=== PATIENT | female | born 1960 | race Caucasian/White ===

== ENCOUNTER 2021-01-30 16:13 | Emergency (ER) | payer BC ==
--- OUTSIDE RECORDS SUMMARY | 2021-01-30 16:17 | XMS REPORT | Continuity of Care Document ---
:1960 Author Organization [facility] t Address [address] [place] [address] Dr. Smyth [address] [place] [address] Care Team Providers Name Role Phone Marleen MCDONALD, Juhi Primary Care Physician Vick German MD Attending Clinician Adams Mansfield MD Attending Clinician Denadebra LOBO Attending Clinician MD VICK GERMAN Attending Clinician Unavailable Renetta BUITRAGO Attending Clinician Unavailable Provider Attending Clinician FARA Admitting Clinician Unavailable MD VICK GERMAN Admitting Clinician Unavailable Payers Payer Name Policy Type Policy Number Effective Date Expiration Date S ource Problems Condition Condition Condition Status Onset Resolution Last Treating Co mments Source Name Details Category Date Date Treatment Clinician Date Atypical Atypical Disease Active [facility] di ductal ductal 3-11 st hyperplasi hyperplasi 00:00: Ho spita a of right a of right 00 l breast breast Family Family Disease Active [facility] history of history of 2-11 st breast breast 00:00: Hospita cancer cancer 00 l Cellulitis Cellulitis Disease Active M ethodi of right of right 2-04 st breast breast 00:00: Hospita 00 l 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 uncertain 00:00: Hosp darlin behavior behavior 00 l of right of right breast breast Abnormal Abnormal Disease Active 2019-05 Metho di findings findings 2- st on on 00:00: Hospita diagnostic diagnostic 00 l imaging of imaging of breast breast Breast Breast Disease Active 2019-05 [facility] calcificat calcificat 2-01 st ions on ions on 00:00: Hospita mammogram mammogram 00 l Sciatica Sciatica Disease Active Metho di 12-22 st 00:00: Hospita 00 l Osteopenia Osteopenia Disease Active 2017-05 M ethodi 05-24 st 00:00: Hospita 00 l Allergies, Adverse Reactions, Alerts Allergy Allergy Status Severity Reaction(s) Onset Inactive Treating Comm ents Source Name Type Date Date Clinician Latex Propensi Active Itching 2019-05 Swelling, Meth shamika ty to 06-[address] adverse 00:00: blisters Hospita reaction 00 l s to drug Family History Family Member Diagnosis Comments Start Date Stop Date Source Cousin Breast cancer [facility] Paternal aunt [facility] Social History Social Habit Start Date Stop Date Quantity Comments Source Tobacco use and 2020-07-27 2020-07-27 Never used [facility] 00:00:00 00:00:00 Hospital Alcohol intake 2020-07-27 2020-07-27 Lifetime [facility] 00:00:00 00:00:00 non-drinker Hospital (finding) History SDOH 2020-06-29 2020-06-29 1 [facility] Alcohol Frequency 00:00:00 00:00:00 Hospita l History SDOH 2020-06-29 2020-06-29 99 [facility] Alcohol Std Drinks 00:00:00 00:00:00 Hospit al History SDOH 2020-06-29 2020-06-29 1 [facility] Alcohol Binge 00:00:00 00:00:00 Hospital Sex Assigned At [birth year] [facility] 00[facility] 00[facility]:00 [facility] Smoking Status Start Date Stop Date Source Never smoker [facility] Medications Ordered Filled Start Stop Current Ordering Indication Dosage Frequency Signature Comments Components Source Medication Medication Date Date Medication? Clinician (SIG) Name Name multivitami Yes 1{capsu QD Take 1 M ethodi n capsule 3-11 le} capsule by st 16:08: mouth Hospita 47 daily. l cyanocobala Yes QD Take by Met hodi min, 3-[address] vitamin 16:08: daily. Hospita B-12, 47 l (VITAMIN B-12 ORAL) cholecalcif Yes QD Take by Met dale daljit, 3-[address] vitamin D3, 16:08: daily. Hosp darlin (VITAMIN D3 47 l ORAL) ascorbic Yes QD Take by Method i acid 3-[address] (VITAMIN C 16:08: daily. Hospi ta ORAL) 47 l cephalexin 2020- No 500mg Q.[id number] Take 1 Methodi (Keflex) 2-04 02-15 [id number] capsule s t 500 MG 00:00: 05:59 3D (500 mg Hospita capsule 00 :00 total) by l mouth 3 (three) times a day for 10 days. traMADoL 2020- No 10746 50mg Q6H Take 1 Metho di (Ultram) 50 06-1407 tablet (50 s t mg tablet 00:00: 05:59 mg total) Ho spita 00 :00 by mouth l every 6 (six) hours as needed for severe pain for up to 10 days .acute pain. methocarbam 2019-05 Yes 750mg Q.[id number] Take 750 Methodi oL -[id number] (ROBAXIN) 00:00: 3D mouth 3 Hospi ta 750 MG 00 (three) l tablet times a day as needed. pantoprazol 2019-05 Yes 40mg QD Take 40 mg Methodi e 0-[address] (PROTONIX) 00:00: daily. Hospi ta 40 MG EC 00 l tablet Vital Signs Vital Name Observation Time Observation Value Comments Source BMI 2020-07-27 16:10:00 36.50 kg/m2 [facility] Systolic blood 2020-07-27 16:10:00 107 mm[Hg[facility] Di[facility] 2020-07-27 16:10:00 66 mm[Hg] [facility] pressure Heart rate 2020-07-27 16:10:00 52 /min [facility] Body height 2020-07-27 16:10:00 154.9 cm [facility] Body weight 2020-07-27 16:10:00 87.635 kg [facility] Respiratory rate 2020-06-14 17:40:00 20 /min [facility] Oxygen saturation in 2020-06-14 17:40:00 100 /min [facility] Arterial blood by Pulse oximetry Body temperature 2020-06-14 17:25:00 36.11 [facility] Procedures Procedure Date / Time Performing Clinician Source Performed BREAST SPECIMEN 2020-06-14 19:56:41 [facility] SURGICAL PATHOLOGY 2020-06-14 17:27:00 [facility] REQUEST [facility] AK AN ELECTIVE 2020-06-14 15:45:18 Annette Rivas [facility] SUPRAGLOTTIC AIRWAY ELYSE TRAVEL AGENCY MANAGER LOCALIZED 2020-06-14 15:31:00 [facility] PARTIAL MASTECTOMY [facility] POC GLUCOSE 2020-06-14 14:33:00 [facility] COVID-19 QUALITATIVE 2020-06-12 16:18:00 [facility] RT-PCR [facility] MAMMO DIGITAL BREAST 2020-06-08 15:08:30 [facility] LOCALIZATION RIGHT [facility] MAMMO DIAGNOSTIC BIOPSY 2020-06-08 15:07:52 [facility] FOLLOW UP (NO CHARGE) [facility] SURGICAL PATHOLOGY 2020-05-10 17:43:00 [facility] REQUEST [facility] STEREOTACTIC BREAST 2020-05-10 17:32:18 [facility] BIOPSY RIGHT [facility] BREAST SPECIMEN 2020-05-10 17:31:59 [facility] MAMMO DIAGNOSTIC BIOPSY 2020-05-10 17:31:34 [facility] FOLLOW UP (NO CHARGE) [facility] MAMMO DIAGNOSTIC W CAD 2020-04-06 00:00:00 Provider, [facility] RIGHT MAMMO EXTERNAL STUDY 2020-03-28 14:56:20 [facility] MAMMO BREAST SCREEN 2020-03-28 00:00:00 Provider, [facility] TOMOSYNTHESIS BILATERAL Plan of Care Planned Activity Planned Date Details Comments Source Future Scheduled Test COVID-19 VACCINE (1) [facility] [code = COVID-19 VACCINE (1)] Future Scheduled Test Hepatitis C screening [facility] (procedure) [code = 430217880] Future Scheduled Test Screening for malignant [facility] neoplasm of cervix (procedure) [code = 914267780] Future Scheduled Test COLONOSCOPY SCREENING [facility] [code = COLONOSCOPY SCREENING] Future Scheduled Test SHINGLES VACCINES (#1) [facility] [code = SHINGLES VACCINES (#1)] Future Scheduled Test INFLUENZA VACCINE [code [facility] = INFLUENZA VACCINE] Future Scheduled Test BREAST CANCER SCREENING [facility] [code = BREAST CANCER SCREENING] Encounters Start End Encounter Admission Attending Care Care Encounter Source Date/Time Date/Time Type Type Clinicians Facility Department ID 2020-08-02 2020-08-02 Travel 1.2.840.1 [id number] [facility] 00:00:00 00:00:[address] 3.430.2.7 0.2.7.3.698 Ho spita .3.044739 084.8 l .8 2020-07-27 2020-07-27 Office Fara, 1.2.840.1 [id number] Method[facility] 09:25:59 10:32:55 Visit Karime Hickman 86203.1.[address] 3.430.2.7 Hospit a .3.949027 l .8 2020-07-27 2020-07-27 Outpatient FARA, [facility] 2100 [id number] [place] 00:00:00 00:00:[address] KARIME [address] 2020-06-29 2020-06-29 Office Macy, 1.2.840.1 [id number] [id number] [facility] 09:18:53 10:14:09 Visit Karime Hickman 63000.1.[address] 3.430.2.7 Hospit a .3.600750 l .8 2020-06-29 2020-06-29 Outpatient FARA, [facility] 2100 [id number] [place] 00:00:00 00:00:00 KARIME [address] 2020-06-29 2020-06-29 Travel 1.2.840.1 1.2.221.278 [id number] [facility] 00:00:00 00:00:[address] 3.430.2.7 0.2.7.3.698 spita .3.235925 084.8 l .8 2020-06-22 2020-06-22 Office Macy, 1.2.840.1 [id number] Method[facility] 10:05:02 10:46:07 Visit Karime Hickman 44860.1.[address] 3.430.2.7 Hospit a .3.512736 l .8 2020-06-22 2020-06-22 Outpatient [place], [facility] 2100 [id number] [place] 00:00:00 00:00:00 KARIME [address] 2020-06-14 2020-06-14 [facility], 1.2.840.1 [id number] Method[facility] 07:15:00 11:57:00 Encounter Karime Hickman 42127.1.[address] 3.430.2.7 Hospit a .3.893983 l .8 2020-06-14 2020-06-14 Anesthesia Art Mansfieldlo 1.2.840.1 [id number] Methodi 09:31:00 10:37:00 Event Adilia Fernandes 81681.1.[address] 3.430.2.7 Hospit a .3.592049 l .8 2020-06-14 2020-06-14 Surgery Macy, 1.2.840.1 [id number] [id number] Methodi 09:25:00 10:35:00 [address]ime [address]37.[address] 3.430.2.7 Hospit a .3.694861 l .8 2020-06-14 2020-06-14 Outpatient [facility] [id number] [place] 00:00:00 00:00:00 KARIME [address] 2020-06-12 2020-06-12 Outpatient [facility] 2100 [id number] [place] 00:00:00 00:00:00 KARIME [address] 2020-06-12 2020-06-12 Travel 1.2.840.1 1.2.122.421 [id number] [facility] 00:00:00 00:00:[address] 3.430.2.7 0.2.7.3.698 Ho spita .3.209600 084.8 l .8 2020-06-08 2020-06-08 [facility], 1.2.840.1 [id number] Methodi 06:50:41 23:59:00 Encounter Karime Hickman 04927.1.[address] 3.430.2.7 Hospit a .3.363006 l .8 2020-06-08 2020-06-08 [facility], 1.2.840.1 [id number] Methodi 06:49:37 06:49:37 Encounter Karime Hickman 12131.1.[address] 3.430.2.7 Hospit a .3.336670 l .8 2020-06-08 2020-06-08 Travel 1.2.840.1 1.2.559.035 [id number] Methodi 00:00:00 00:00:[address] 3.430.2.7 0.2.7.3.698 Ho spita .3.327434 084.8 l .8 2020-06-08 2020-06-08 Outpatient [facility] [address] [place] [address] 00:00:00 00:00:00 KARIME [address] 2020-06-08 2020-06-08 Outpatient [facility] [address] [place] [address] 00:00:00 00:00:00 KARIME [address] 2020-06-07 2020-06-07 Travel 1.2.840.1 1.2.043.199 [id number] Method[facility] 00:00:00 00:00:[address] 3.430.2.7 0.2.7.3.698 Ho spita .3.589565 084.8 l .8 2020-06-07 2020-06-07 Transcribe Macy, 1.2.840.1 [id number] Methodi 00:00:00 00:00:00 Orders Karime Hickman 00137.1.[address] 3.430.2.7 Hospit a .3.091757 l .8 2020-06-05 2020-06-05 Travel 1.2.840.1 1.2.666.734 [id number] Methodi 00:00:00 00:00:[address] 3.430.2.7 0.2.7.3.698 Ho spita .3.889214 084.8 l .8 2020-05-25 2020-05-25 Office Macy, 1.2.840.1 [id number] [id number] Method[facility] 15:35:26 16:18:42 Visit Karime Hickman 08950.1.[address] 3.430.2.7 Hospit a .3.739109 l .8 2020-05-25 2020-05-25 Outpatient FARA, [facility] 2099 [id number] [place] 00:00:00 00:00:00 KARIME Dos Santos [facility] 2020-05-17 2020-05-17 Telephone Macy, 1.2.840.1 [id number] Method[facility] 00:00:00 00:00:00 Karime [address]asiya [address]185.1.[address] 3.430.2.7 Hospit a .3.628703 l .8 2020-05-11 2020-05-11 Telephone [facility], 1.2.840.1 [id number] [id number] Methodi 00:00:00 00:00:[address] 3.430.2.7 Hospit a .3.178774 l .8 2020-05-10 2020-05-10 [facility], 1.2.840.1 [id number] 21 [id number] Methodi 10:06:32 23:59:00 Encounter Karime Jordananastasiya 52036.1.[address] 3.430.2.7 Hospit a .3.514287 l .8 2020-05-10 2020-05-10 [facility], 1.2.840.1 [id number] 21 [id number] Methodi 08:55:12 10:05:00 Encounter Karime Hickman 78413.1.[address] 3.430.2.7 Hospit a .3.371771 l .8 2020-05-10 2020-05-10 [facility], 1.2.840.1 [id number] Methodi 08:54:14 08:54:14 Encounter Karime Hickman 53870.1.[address] 3.430.2.7 Hospit a .3.123370 l .8 2020-05-10 2020-05-10 Outpatient [facility] 2100 [id number] [place] 00:00:00 00:00:00 KARIME [address] 2020-05-10 2020-05-10 Outpatient [facility] 2100 [id number] [place] 00:00:00 00:00:00 KARIME [address] 2020-05-10 2020-05-10 [facility] 2100 [id number] [place] 00:00:00 00:00:00 KARIME [address] 2020-05-10 2020-05-10 Travel 1.2.840.1 1.2.228.147 [id number] [facility] 00:00:00 00:00:[address] 3.430.2.7 0.2[facility]7.3.698 [facility] .[facility] 2020-05-09 2020-05-09 [facility], 1.2.840.1 [id number] 000 [id number] Methodi 00:00:00 00:00:[address] 3.430.2.7 Hospit a .3.066476 l .8 2020-04-21 2020-04-21 [facility], 1.2.840.1 [id number] 21 [id number] Methodi 08:45:26 23:59:00 Encounter Karime Hickman 42059.1.[address] 3.430.2.7 Hospit a .3.623152 l .8 2020-04-21 2020-04-21 [facility], [facility] 2099 [id number] [place] 00:00:00 00:00:00 KARIME [address] 2020-04-21 2020-04-21 Travel 1.2.840.1 1.2.861.173 [id number] [id number] [facility] 00:00:00 00:00:[address] 3.430.2.7 0.2.7.3.698 Ho spita .3.217176 084.8 l .8 2020-04-21 2020-04-21 Transcribe Macy, 1.2.840.1 [id number] Methodi 00:00:00 00:00:00 Orders Karime Hickman 97238.1.[address] 3.430.2.7 Hospit a .3.990516 l .8 2020-04-21 2020-04-21 Transcribe Fara, 1.2.840.1 [id number] Methodi 00:00:00 00:00:00 Orders Karime Hickman [address].1.[address] 3.430.2.7 Hospit a .3.697687 l .8 2020-04-19 2020-04-19 [facility], 1.2.840.1 [id number] Methodi 11:13:39 23:59:00 Encounter Karime Hickman 45465.1.[address] 3.430.2.7 Hospit a .3.430031 l .8 2020-04-19 2020-04-19 [facility], 1.2.840.1 [id number] 21 [id number] Methodi 10:33:43 11:12:00 Encounter Karime Hickman 16594.1.[address] 3.430.2.7 Hospit a .3.639268 l .8 2020-04-19 2020-04-19 [facility], 1.2.840.1 [id number] 21 [id number] Methodi 10:16:11 10:32:00 Encounter Karime Hickman 74908.1.[address] 3.430.2.7 Hospit a .3.649236 l .8 2020-04-19 2020-04-19 Outpatient FARA, [facility] 2100 [id number] [place] 00:00:00 00:00:00 KARIME 862 Method i 2020-04-19 2020-04-19 Outpatient FARA, [facility] 2100 [id number] [place] 00:00:00 00:00:00 KARIME 676 Method i 2020-04-19 2020-04-19 Outpatient FARA, [facility] 2100 [id number] [place] 00:00:00 00:00:00 KARIME 060 Method i 2020-04-18 2020-04-18 Office Fara, 1.2.840.1 [id number] Methodi 10:02:54 11:24:24 Visit Karime Hickman 53563.1.[address] 3.430.2.7 Hospit a .3.520929 l .8 2020-04-18 2020-04-18 Outpatient FARA, [facility] 2100 [id number] [place] 00:00:00 00:00:00 KARIME 612 Method i 2020-04-18 2020-04-18 Orders Provider, 1.2.840.1 [id number] Methodi 00:00:00 00:00:00 Only Historical 01322.1.1 211 s t 3.430.2.7 Hospit a .3.062742 l .8 Results Test Description Test Time Test Comments Results Result Comments Source Surgical pathology request 2020-06-21 17:29:44 Test Item Value Reference Range Interpretation Comme nts Case number (test code = 8121671) [id number] Surgical pathology report (test code = See link below for PDF Lab R eport 9425) Result status (test code = 2000187) This is Final Report for [id number] [facility] [id number] 22:39:20EXAMINATION: BREAST SPECIMEN IMPRESSION: Intra-operative digital Faxitron breast specimen radiogra phy was obtained following Elyse Customer Account Technician localization and excision. The specimen radiograph demonstrates the Elyse Customer Account Technician reflector and targeted biopsy clip. Findings were relayed to Dr. German in the operating room. [id number] Interface, Radiology Results Incoming - 06/14/2020 4:42 PM CST EXAMINATION: BREAST SPECIMEN IMPRESSION:Intra-operative digital Faxitron breast specimen radiography was obtained following Elyse Customer Account Technician localization and excision. The specimen radiograph demonstrates the Elyse Customer Account Technician reflector and targeted biopsyclip. Findings were relayed to Dr. German in the operating room. [id number] [id number] 15:45:18WrAnnette monk CRNA 06/14/2020 9:45 AMAirway Date/Time: 06/14/2020 9:37 AM Location: OR Performed by: anesthesia residentAnesthesiologist: Art Mansfield, CLARISSAesident/LEISURE TRAVEL AGENT/AA: Eloisa Rivas CRNAAuthorized by: Annette Rivas CRNA Urgency: ElectiveDifficult Airway: NoPreoxygenated with 100% O2: Yes C-spine Precautions Maintained Throughout: Yes Mask Ventilation: Not attemptedFinal Airway Type: Supraglottic airwayFinal LMA: I-GelLMA Size: 4Number of Attempts at Approach: [facility] ([facility]-19) RNA [Presence] in Respiratory specimen by MIRIAM with probe [id number] 19:36:08 Test Item Value Reference Range Interpretation Comments SARS-CoV-2 (COVID-19) RNA Not detected Not-Detected [Presence] in Respiratory specimen by MIRIAM with probe detection (test code = 47310-6) Mammo Digital Breast Localization [id number] 16:19:54PROCEDURE: MAMMO DIAGNOSTIC BIOPSY FOLLOW UP, MAMMO DIGITAL BREAST LOCALIZATION RIGHT HISTORY: 60-year-old patient presents for preoperative localization of the biopsy clip in the upper midline right breast. CONSENT: Informed consent for mammographic guided needle localization of the right breast was obtained following a detailed discussion of the procedure, alternatives, risks, and complications including hemorrhage and infection. TECHNIQUE: A time out was performed by the team prior to the procedure to verify the patient identity and lesion site(s). FINDINGS: Under mammographic guidance the biopsy clip in the upper midline right breast was targeted. The mammographic guided needle localization was performed with a 10 cm length Elyse Customer Account Technician needle set under the usual aseptic conditions and 1% li docaine local anesthetic. Positioning was confirmed mammographically and the Elyse Customer Account Technician reflector successfully deployed. Reflector function was confirmed with the hand piece. The patient tolerated theprocedure well without complications. Post localization mammogram demonstrates satisfactory positionof the reflector adjacent to the biopsy clip. RECOMMENDATION / IMPRESSION: Technically successfulmammographic guided Elyse Customer Account Technician localization of the right breast. Recommend specimen radiograph. [id number] Interface, Radiology Results - 06/08/2020 10:22 AM CST PROCEDURE: MAMMO DIAGNOSTIC BIOPSY FOLLOW UP, MAMMO DIGITAL BREAST LOCALIZATION RIGHTHISTORY: 60-year-old patient presents for preoperative localization of the biopsy clip in the upper midline right breast.CONSENT: Informed consent for mammographic guided needle localization of the right breast was obtained following a detailed discussion of the procedure, alternatives, risks, and complications including hemorrhage and infection.TECHNIQUE: A time out was performed by the team prior to the procedure to verify the patient identity and lesion site(s).FINDINGS: Under mammographic guidance the biopsy clip in the upper midline right breast was targeted. The mammographic guided needle localization was performed with a 10 cm length Elyse Customer Account Technician needle set under the usual aseptic conditions and 1% lidocaine local anesthetic. Positioning was confirmed mammographically and the Elyse Customer Account Technician reflector successfully deployed. Reflector function was confirmed with the hand piece. The patient tolerated the procedure well without complications.Post localization mammogramdemonstrates satisfactory position of the reflector adjacent to the biopsy clip. RECOMMENDATION / IMPRESSION: Technically successful mammographic guided Elyse Customer Account Technician localization of the right breast. Recommend specimen radiograph. [id number] Diagnostic Biopsy Follow Up (No Charge)2020-06-08 16:19:54PROCEDURE: MAMMO DIAGNOSTIC BIOPSY FOLLOW UP, MAMMO DIGITAL BREAST LOCALIZATION RIGHT HISTORY: 60-year-old patient presents for preoperative localization of the biopsy clip in the upper midline right breast. CONSENT: Informed consent for mammographic guided needle localization of the right breast was obtained following a detailed discussion of the procedure, alternatives, risks, and complications including hemorrhage and infection. TECHNIQUE: A time out was performed by the team prior to the procedure to verify the patient identity and lesion site(s). FINDINGS: Under mammographic guidance the biopsy clip in the upper midline right breast was targeted. The mammographic guided needle localization was performed with a 10 cm length Elyse Customer Account Technician needle set under the usual aseptic conditions and 1% li docaine local anesthetic. Positioning was confirmed mammographically and the Elyse Customer Account Technician reflector successfully deployed. Reflector function was confirmed with the hand piece. The patient tolerated theprocedure well without complications. Post localization mammogram demonstrates satisfactory positionof the reflector adjacent to the biopsy clip. RECOMMENDATION / IMPRESSION: Technically successfulmammographic guided Elyse Customer Account Technician localization of the right breast. Recommend specimen radiograph. [id number] Interface, Radiology Results Incoming - 06/08/2020 10:22 AM CST PROCEDURE: MAMMO DIAGNOSTIC BIOPSY FOLLOW UP, MAMMO DIGITAL BREAST LOCALIZATION RIGHTHISTORY: 60-year-old patient presents for preoperative localization of the biopsy clip in the upper midline right breast.CONSENT: Informed consent for mammographic guided needle localization of the right breast was obtained following a detailed discussion of the procedure, alternatives, risks, and complications including hemorrhage and infection.TECHNIQUE: A time out was performed by the team prior to the procedure to verify the patient identity and lesion site(s).FINDINGS: Under mammographic guidance the biopsy clip in the upper midline right breast was targeted. The mammographic guided needle localization was performed with a 10 cm length Elyse Customer Account Technician needle set under the usual aseptic conditions and 1% lidocaine local anesthetic. Positioning was confirmed mammographically and the Elyse Customer Account Technician reflector successfully deployed. Reflector function was confirmed with the hand piece. The patient tolerated the procedure well without complications.Post localization mammogramdemonstrates satisfactory position of the reflector adjacent to the biopsy clip. RECOMMENDATION / IMPRESSION: Technically successful mammographic guided Elyse Customer Account Technician localization of the right breast. Recommend specimen radiograph. [id number] Stereotactic Breast Biopsy [id number] 18:02:27Addendum by Olivia Gilman MD on 05/15/2020 2:40 PM ADDENDUM #1 This case was reviewed on 05/15/2020. The pathology for the stereotactic biopsy of the right breast calcifications performed on 05/10/2020 yielded atypical ductal hyperplasia as per report by pathologist Tracy Hunter M.D.. Please see full pathology report for further details. The radiology and pathology are concord ant. The patient is currently under the care of Dr. Karime German, breast surgeon, with whom she is recommended to follow-up for further management of the biopsy-proven right breast atypical ductal hyperplasia. Results and recommendations were discussed with Brittany Dupree, Nurse Practitioner of Dr. Karime German, by Dr. Gilman via telephone at 2:35 PM on 05/15/2020. Results and recommendations were discussed with the patient by Dr. Gilman via telephone at 2:40 PM on 05/15/2020.PROCEDURE:Stereotactic Guided Biopsy HISTORY: 60 year old patient presents for a stereotactic guided core biopsy. The patient was recommended for stereotactic core needle biopsy from outside institution based on diagnostic mammogram dated 04/06/2024 "the 7 mm group of small calcifications are localized within the middle depth around 1:00 axis 6 cm from nipple. Upon magnification indeterminate 7 mm group elevationsin the right breast, middle depth around 1:00 axis best seen on magnification views. Recommendations: Stereotactic biopsy." The subcentimeter calcifications in the upper inner quadrant of the right breast was targeted. CONSENT: Informed written consent for stereotactic guided core needle biopsy was obtained following a detailed discussion of the procedure, alternatives, risks, and complications including hemorrhage, infection, and clip migration. PROCEDURE: A time out was performed by the team prior to the procedure to verify patient identity, lesion site, and pathology specimen labels. Preliminary full field right CC and ML views and spot compression magnification views in anticipation of biopsy demonstrates a 0.5 cm group of punctate and amorphous calcifications in the right upper inner quadrant 1:00 position 6 cm from the nipple. Additional scattered punctate and coarse calcifications are seen throughout the right breast. The 0.5 cm group of calcifications in the right upper inner quadrant 1 :00 position was targeted for biopsy. The patient was brought to the prone stereotactic procedure room where the stereotactic guided vacuum-assisted core needle biopsy was performed under the usual aseptic conditions and local anesthetic. Approximately 7 cores samples were obtained through a single skin incision and submitted for histological analysis. A top hat shaped biopsy clip was deployed marking the biopsy site. The patient tolerated the procedure and was discharged in stable condition. Calcifications are present on the specimen radiograph. Post procedure mammogram obtained with minimal compression not for diagnostic purposes but for clip deployment demonstrates expected clip placement. The patient was given the appropriate aftercare and written and verbal instructions by the breast center staff. IMPRESSION: Completed stereotactic guided biopsy. Awaiting final pathology. Workstation Name: [id number] Interface, Radiology Results Incoming - 05/10/2020 12:05 PM CST PROCEDURE:Stereotactic Guided BiopsyHISTORY: 60 year old patient presents for a stereotactic guided core biopsy. The patient was recommended for stereotactic core needle biopsy from outside institution based on diagnostic mammogram dated 04/06/2024 "the 7 mm group of small calcifications are localized within the middle depth around 1:00 axis 6 cm from nipple. Upon magnification indeterminate 7 mm group elevations in the right breast, middle depth around 1:00 axis best seen on magnification views. Recommendations: Stereotactic biopsy." The subcentimeter calcifications in the upper inner quadrant of the right breast was targeted.CONSENT: Informed written consent for stereotactic guided core needle biopsy was obtained following a detailed discussion of the procedure, alternatives, risks, and complications including hemorrhage, infection, and clip migration.PROCEDURE: A time out was performed by the team prior to the procedure to verify patient identity, lesion site, and pathology specimen labels.Preliminary full field right CC and ML views and spot compress ion magnification views in anticipation of biopsy demonstrates a 0.5 cm group of punctate and amorphous calcifications in the right upper inner quadrant 1:00 position 6 cm from the nipple. Additional scattered punctate and coarse calcifications are seen throughout the right breast. The 0.5 cm group of calcifications in the right upper inner quadrant 1:00 position was targeted for biopsy.The patient was brought to the prone stereotactic procedure room where the stereotactic guided vacuum-assisted core needle biopsy was performed under the usual aseptic conditions and local anesthetic. Approximately 7 cores samples were obtained through a single skin incision and submitted for histological analysis.A top hat shaped biopsy clip was deployed marking the biopsy site. The patient tolerated the procedure and was discharged in stable condition.Calcifications are present on the specimen radiograph.Post procedure mammogram obtained with minimal compression not for diagnostic purposes but for clip deployment demonstrates expected clip placement.The patient was given the appropriate aftercare and writtenand verbal instructions by the breast center staff.IMPRESSION: Completed stereotactic guided biopsy.Awaiting final pathology.Workstation Name: [id number] External Study 2020-04-21 14:56:50This exam was not acquired at a [facility] facility and has not been interpreted by a [facility] Provider. The exam was imported into our imaging system.[facility]
[2021-01-30] MEDS ORDERED: CASIRIVIMAB/IMDEVIMAB 10 ML VIAL ONE (17:26)
[2021-01-30] MEDS ORDERED: NA CHLORIDE 0.9% 250 ML ONE (17:43)
--- NOTE | 2021-01-30 18:53 | EDPHYS ---
Physician Documentation [facility] Name: Claudia Chahal Age: 60 yrs Sex: Female : 1960 Arrival Date: 01/30/2021 Time: 16:19 Bed 17 Private MD: ED Physician Navi Ferris HPI: 01/30 16:59 This 60 yrs old Female presents to ER via Ambulatory with complaints of pm1 Covid+,Infusion. 16:59 Onset: The symptoms/episode began/occurred yesterday, With body aches and fever. pm1 Patient's only Covid current symptoms. Associated signs and symptoms: Pertinent negatives: abdominal pain, chest pain, cough, diarrhea, shortness of breath, sore throat, vomiting. Modifying factors: The patient symptoms are alleviated by acetaminophen, ibuprofen. The patient has not experienced similar symptoms in the past. The patient has been recently seen by a physician: with similar presenting complaints, Patient diagnosed with Covid at [facility] and instructed to report to the ER here for monoclonal antibody infusion. Historical: - Allergies: 16:42 Latex, Natural Rubber; aa5 - PMHx: 16:42 None; aa5 - PSHx: 16:42 gastric sleeve; Tonsillectomy; aa5 - Immunization history:: Client reports having NOT received the Covid vaccine. - Social history:: Smoking status: Patient denies any tobacco usage or history of. ROS: 16:59 Eyes: Negative for injury, pain, redness, and discharge, ENT: Negative for injury, pm1 pain, and discharge, Cardiovascular: Negative for chest pain, palpitations, and edema, Respiratory: Negative for shortness of breath, cough, wheezing, and pleuritic chest pain, Abdomen/GI: Negative for abdominal pain, nausea, vomiting, diarrhea, and constipation, MS/Extremity: Negative for injury and deformity, Skin: Negative for injury, rash, and discoloration, Neuro: Negative for headache, weakness, numbness, tingling, and seizure. 16:59 Constitutional: Positive for body aches, fever, Negative for poor PO intake. 16:59 All other systems are negative. Exam: 16:59 Constitutional: This is a well developed, well nourished patient who is awake, alert, pm1 and in no acute distress. Head/Face: Normocephalic, atraumatic. 16:59 Skin: Warm, dry with normal turgor. Normal color with no rashes, no lesions, and no evidence of cellulitis. 16:59 MS/ Extremity: Pulses equal, no cyanosis. Neurovascular intact. Full, normal range of motion. 16:59 Cardiovascular: Exam negative for acute changes, Rate: normal, Rhythm: regular, Pulses: no pulse deficits are appreciated. 16:59 Respiratory: Exam negative for acute changes, respiratory distress, shortness of breath. 16:59 Abdomen/GI: Inspection: abdomen appears normal, Palpation: abdomen is soft and non-tender, in all quadrants. 16:59 Neuro: Exam negative for acute changes, Orientation: is normal, Mentation: is normal, Motor: is normal, moves all fours. Vital Signs: 16:41 BP 127 / 85; Pulse 66; Resp 18 S; Temp 97.9(TE); Pulse Ox 100% on R/A; Weight 83.91 kg aa5 (R); Height 5 ft. 1 in. (154.94 cm) (R); 17:57 BP 132 / 89; Pulse 66; Resp 15; Pulse Ox 100% ; Pain 0/10; jl7 18:48 BP 119 / 80; Pulse 61; Resp 15; Pulse Ox 100% ; jl7 19:48 BP 133 / 74; Pulse 65; Resp 16; Temp 98.9(O); Pulse Ox 100% on R/A; Pain 0/10; bc5 16:41 Body Mass Index 34.96 (83.91 kg, 154.94 cm) aa5 MDM: 16:47 Patient medically screened. pm1 18:47 Data reviewed: vital signs. Data interpreted: Pulse oximetry: on room air is 100 %. pm1 Interpretation: normal. Counseling: I had a detailed discussion with the patient and/or guardian regarding: the historical points, exam findings, and any diagnostic results supporting the discharge/admit diagnosis, the need for outpatient follow up, a family practitioner, to return to the emergency department if symptoms worsen or persist or if there are any questions or concerns that arise at home. Administered Medications: 17:45 Drug: REGEN-COV Dose Pack 120 mg/mL-120 mg/mL (EUA) 600 mg Route: IV; Rate: calculated jl7 rate; Site: right wrist; 18:45 Follow up: Response: No adverse reaction; IV Status: Completed infusion jl7 Disposition: 01/31 06:42 Co-signature as Attending Physician, Navi Ferris MD I agree with the assessment and [facility] plan of care. Disposition Summary: 01/30/21 18:52 Discharge Ordered Location: Home pm1 Problem: new pm1 Symptoms: have improved pm1 Condition: Stable pm1 Diagnosis - Coronavirus infection, unspecified pm1 Followup: pm1 - With: Emergency Department - When: As needed - Reason: Worsening of condition Followup: pm1 - With: Private Physician - When: 2 - 3 days - Reason: Recheck today's complaints, Continuance of care, Re-evaluation by your physician Discharge Instructions: - Discharge Summary Sheet pm1 - COVID-19 pm1 - COVID-19 Frequently Asked Questions pm1 - 10 Things You Can Do to Manage Your COVID-19 Symptoms at Home - [facility] pm1 - COVID-19: Quarantine vs. Isolation - [facility] pm1 Forms: - Medication Reconciliation Form pm1 - Thank You Letter pm1 - Antibiotic Education pm1 - Prescription Opioid Use pm1 Signatures: Navi Ferris MD MD cha Calderon, Audri, RN RN aa5 Chung Koehler, [employer] CLERK pm1 Colton Josue RN RN jl7
--- NOTE | 2021-01-30 18:53 | ER ---
Nurse's Notes [facility] Name: Claudia Chahal Age: 60 yrs Sex: Female : 1960 Arrival Date: 01/30/2021 Time: 16:19 Bed 17 Private MD: Diagnosis: Coronavirus infection, unspecified Presentation: 01/30 16:41 Chief complaint: Patient states: "I was just seen at [facility] and tested positive for aa5 COVID-19 and they sent me here because they were unable to give me the infusion for covid". Pt also reports negative chest x-ray at [facility]. Coronavirus screen: Client reports previous positive COVID test result. Date of collection: January 30, 2021. Ebola Screen: Patient negative for fever greater than or equal to 101.5 degrees Fahrenheit, and additional compatible Ebola Virus Disease symptoms. Initial Sepsis Screen: Does the patient meet any 2 criteria? No. Patient's initial sepsis screen is negative. Does the patient have a suspected source of infection? Yes:. Risk Assessment: Do you want to hurt yourself or someone else? Patient reports no desire to harm self or others. Onset of symptoms was 2020. 16:41 Method Of Arrival: Ambulatory aa5 16:41 Acuity: ERIC 3 aa5 Historical: - Allergies: 16:42 Latex, Natural Rubber; aa5 - PMHx: 16:42 None; aa5 - PSHx: 16:42 gastric sleeve; Tonsillectomy; aa5 - Immunization history:: Client reports having NOT received the Covid vaccine. - Social history:: Smoking status: Patient denies any tobacco usage or history of. Screenin:56 Abuse screen: Denies threats or abuse. Denies injuries from another. Nutritional jl7 screening: No deficits noted. Tuberculosis screening: No symptoms or risk factors identified. Fall Risk IV access (20 points). Assessment: 17:56 General: Appears in no apparent distress. uncomfortable, Behavior is calm, cooperative, jl7 appropriate for age. Pain: Denies pain. Neuro: Level of Consciousness is awake, alert, obeys commands, Oriented to person, place, time, situation. Cardiovascular: Denies chest pain, Patient's skin is warm and dry. Respiratory: Airway is patent Respiratory effort is even, unlabored, Respiratory pattern is regular, symmetrical, Denies shortness of breath. Derm: Skin is pink, warm \\T\\ dry. 18:48 Reassessment: Patient appears in no apparent distress at this time. No changes from jl7 previously documented assessment. Patient and/or family updated on plan of care and expected duration. Pain level reassessed. Patient is alert, oriented x 3, equal unlabored respirations, skin warm/dry/pink. 19:01 Reassessment: Pt will be discharged 1 hour post infusion completion time. jl7 19:37 Reassessment: Patient sitting up in stretcher with eyes open, RR is even and unlabored, bc5 A\\T\\O x 3, speaking in clear and complete sentences at this time. Pt updated as POC, no further needs at this time. Vital Signs: 16:41 BP 127 / 85; Pulse 66; Resp 18 S; Temp 97.9(TE); Pulse Ox 100% on R/A; Weight 83.91 kg aa5 (R); Height 5 ft. 1 in. (154.94 cm) (R); 17:57 BP 132 / 89; Pulse 66; Resp 15; Pulse Ox 100% ; Pain 0/10; jl7 18:48 BP 119 / 80; Pulse 61; Resp 15; Pulse Ox 100% ; jl7 19:48 BP 133 / 74; Pulse 65; Resp 16; Temp 98.9(O); Pulse Ox 100% on R/A; Pain 0/10; bc5 16:41 Body Mass Index 34.96 (83.91 kg, 154.94 cm) aa5 ED Course: 16:19 Patient arrived in ED. mr 16:41 Arm band placed on. aa5 16:42 Triage completed. aa5 16:45 Colton Josue, MINNA is Primary Nurse. jl7 16:47 Chung Koehler NP is PHCP. pm1 16:47 Navi Ferris MD is Attending Physician. pm1 17:56 Patient has correct armband on for positive identification. Bed in low position. Call 7 light in reach. Side rails up X 1. Pulse ox on. NIBP on. Warm blanket given. 17:56 Inserted saline lock: 22 gauge in right wrist, using aseptic technique. jl7 19:02 No provider procedures requiring assistance completed. jl7 19:15 Primary Nurse role handed off by Cloton Josue RN mw2 20:00 IV discontinued, intact, No redness/swelling at site. bc5 Administered Medications: 17:45 Drug: REGEN-COV Dose Pack 120 mg/mL-120 mg/mL (EUA) 600 mg Route: IV; Rate: calculated jl7 rate; Site: right wrist; 18:45 Follow up: Response: No adverse reaction; IV Status: Completed infusion jl7 Outcome: 18:52 Discharge ordered by MD. pm1 19:49 Discharged to home ambulatory. 5 19:49 Condition: stable 19:49 Discharge instructions given to patient, Instructed on discharge instructions, follow up and referral plans. Demonstrated understanding of instructions, follow-up care. 20:00 Patient left the ED. 5 Signatures: Dianne Bassett mr CabreraNeelima, RN RN aa5 Chung Koehler, [employer] ARCHITECT pm1 Colton Josue RN RN jl7 Rohini Peña mw2 Ban Machuca RN RN bc5
[2021-01-30 20:35] VITALS: O2SAT 100
[2021-01-30 20:40] VITALS: BP 133/74; TEMP 98.9
== END 2021-01-30 20:00 | disposition home or self-care (01) ==
LOC: ER 16:13
DX: U07.1 COVID-19 (principal); Z91.040 Latex allergy status; Z91.048 Other nonmedicinal substance allergy status
CPT/HCPCS: 96365; 99284; J7050